=== PATIENT | female | born 1950 | race Caucasian/White ===

== ENCOUNTER 2017-04-30 09:32 | Emergency (ER) | payer MEDICARE ==
[~2017-04-30] VITALS: Ht 167.6 cm; Wt 76.0 kg
[2017-04-30] MEDS ORDERED: NEUPRO1 MG/24 HR (09:39)
[2017-04-30] MEDS ORDERED: CYMBALTA60 MG PO (09:55)
[2017-04-30] MEDS ORDERED: ZETIA10 MG PO (09:55)
[2017-04-30] MEDS ORDERED: BACLOFEN10 MG PO (09:56)
[2017-04-30] MEDS ORDERED: TOPAMAX25 MG PO (09:56)
[2017-04-30] MEDS ORDERED: TYSABRI (10:04)
[2017-04-30] MEDS ORDERED: ULTRAM50 M1 PO (10:06)
[2017-04-30] MEDS ORDERED: LIPOFEN150 MG PO (10:07)
[2017-04-30] MEDS ORDERED: LOSARTAN POT50 MG PO (10:07)
[2017-04-30] MEDS ORDERED: HUMULIN 70/30 SC (10:08)
[2017-04-30] MEDS ORDERED: NEUPRO4 MG/24 HR TD (10:09)
[2017-04-30 10:25] LABS: HEMATOCRIT 35.9 % (37.0-47.0); HEMOGLOBIN 12.1 g/dl (12.0-16.0); IMMATURE GRANULOCYTES 0.5 % (0.0-1.0); MEAN CELL VOLUME 86.3 fL CALC (80.0-100.0); MEAN CORPUSCULAR HGB 29.1 pG CALC (26.0-32.0); MEAN CORPUSCULAR HGB CONC 33.7 g/L CALC (32.0-36.0); NEUT# 4.21 thou/uL (2.00-7.15); RED BLOOD COUNT 4.16 mill/uL (4.20-5.60); RED CELL DISTRI WIDTH 14.6 % (11.5-15.5)
[2017-04-30 10:31] LABS: ALBUMIN 4.6 g/dL (3.2-5.0); ALKALINE PHOSPHATASE 67 u/l (38-126); ANION GAP 15 (6-22 (CALC)); BILIRUBIN, TOTAL 0.5 mg/dL (0.0-1.4); BUN 20 mg/dL (8-23); BUN/CREATININE RATIO 21 (12-20 (CALC)); CALCIUM 9.2 mg/dL (8.4-10.2); CARBON DIOXIDE 25 mmol/l (22-30); CHLORIDE 110 mmol/l (95-108); ETHYL ALCOHOL 0 mg/dl (0-30); GFR 55 ML/MIN (>=60 (CALC)); GFR FOR AFR.AMER. > 60 ML/MIN (>=60 (CALC)); GLUCOSE 112 mg/dL (82-115); POTASSIUM 4.3 mmol/l (3.5-5.1); SGOT/AST 34 u/l (9-36); SGPT/ALT 44 u/l (11-66); SODIUM 146 mmol/l (137-146); TOTAL PROTEIN 7.3 g/dL (6.3-8.2)
[2017-04-30 10:39] LABS: MYOGLOBIN 280 ng/mL (0 - 62)
[2017-04-30 12:32] LABS: BARBITURATES NEGATIVE (NEGATIVE); COCAINE NEGATIVE (NEGATIVE); METHADONE NEGATIVE (NEGATIVE); OXCYCODONE NEGATIVE (NEGATIVE); TETRAHYDROCANNABIONOL POSITIVE (NEGATIVE); TRICYLIC ANTIDEPRESSANTS NEGATIVE (NEGATIVE); URINE BILIRUBIN - DIPSTICK NEGATIVE (NEGATIVE); URINE BLOOD DIPSTICK NEGATIVE (NEGATIVE); URINE CLARITY CLEAR; URINE COLOR YELLOW; URINE GLUCOSE - DIPSTICK NEGATIVE (NEGATIVE); URINE KETONE NEGATIVE (NEGATIVE); URINE LEUK ESTERASE NEGATIVE (NEGATIVE); URINE NITRITE - DIPSTICK NEGATIVE (Negative); URINE PROTEIN - DIPSTICK NEGATIVE (NEG-TRACE); URINE SPECIFIC GRAVITY <=1.005; URINE UROBILINOGEN - DIPSTICK 0.2 E.U./dL (0.2)
[2017-04-30 13:16] VITALS: BP 154/73
[2017-05-01] MEDS ORDERED: TOPAMAX25 MG PO (13:56)
[2017-05-01] MEDS ORDERED: NEURONTIN300 MG PO (13:57)
[2017-05-01] MEDS ORDERED: NOVOLIN 70/30 SC ×2 (13:58)
[2017-05-01] MEDS ORDERED: LOSARTAN POT100 MG PO (13:59)
[2017-05-01] MEDS ORDERED: ZOFRAN ODT4 MG PO (14:04)
[2017-05-01] MEDS ORDERED: ANTIVERT PO (14:04)
[2017-05-01] MEDS ORDERED: [UNRECOGNIZED DRUG - OTHER] (14:06)
== END 2017-04-30 13:41 | disposition home or self-care (01) ==
LOC: ED 09:32
PROVIDERS: Emergency Medicine
DX: R42 Dizziness and giddiness (principal); I10 Essential (primary) hypertension; E11.9 Type 2 diabetes mellitus without complications; G25.81 Restless legs syndrome; G35 Multiple sclerosis; Z86.73 Personal history of transient ischemic attack (TIA), and cerebral infarction without residual deficits; Z79.4 Long term (current) use of insulin

== ENCOUNTER 2017-05-01 13:35 | Emergency (ER) | payer MEDICARE ==
[~2017-05-01] VITALS: Ht 167.6 cm; Wt 75.0 kg
[~2017-05-01 13:35] MED LIST: BACLOFEN10 MG PO; CYMBALTA60 MG PO; HUMULIN 70/30 SC; LIPOFEN150 MG PO; LOSARTAN POT50 MG PO; NEUPRO1 MG/24 HR; NEUPRO4 MG/24 HR TD; TOPAMAX25 MG PO; TYSABRI; ULTRAM50 M1 PO; ZETIA10 MG PO
[2017-05-01] MEDS ORDERED: TOPAMAX25 MG PO (13:56)
[2017-05-01] MEDS ORDERED: NEURONTIN300 MG PO (13:57)
[2017-05-01] MEDS ORDERED: NOVOLIN 70/30 SC ×2 (13:58)
[2017-05-01] MEDS ORDERED: LOSARTAN POT100 MG PO (13:59)
[2017-05-01] MEDS ORDERED: ZOFRAN ODT4 MG PO (14:04)
[2017-05-01] MEDS ORDERED: ANTIVERT PO (14:04)
[2017-05-01] MEDS ORDERED: [UNRECOGNIZED DRUG - OTHER] (14:06)
[2017-05-01 14:19] VITALS: BP 141/68
== END 2017-05-01 14:19 | disposition home or self-care (01) ==
LOC: ED 13:35
DX: H81.10 Benign paroxysmal vertigo, unspecified ear (principal); R11.2 Nausea with vomiting, unspecified

== ENCOUNTER 2017-09-04 09:01 | Emergency (ER) | payer MEDICARE ==
[~2017-09-04] VITALS: Ht 167.6 cm; Wt 80.0 kg
[~2017-09-04 09:01] MED LIST changes: +ANTIVERT PO; +LOSARTAN POT100 MG PO; +NEURONTIN300 MG PO; +NOVOLIN 70/30 SC; +ZOFRAN ODT4 MG PO; +[UNRECOGNIZED DRUG - OTHER]
[2017-09-04 09:25] LABS: HEMATOCRIT 37.8 % (37.0-47.0); HEMOGLOBIN 12.6 g/dl (12.0-16.0); IMMATURE GRANULOCYTES 0.5 % (0.0-1.0); MEAN CELL VOLUME 87.3 fL CALC (80.0-100.0); MEAN CORPUSCULAR HGB 29.1 pG CALC (26.0-32.0); MEAN CORPUSCULAR HGB CONC 33.3 g/L CALC (32.0-36.0); NEUT# 5.07 thou/uL (2.00-7.15); RED BLOOD COUNT 4.33 mill/uL (4.20-5.60); RED CELL DISTRI WIDTH 14.9 % (11.5-15.5)
[2017-09-04 09:42] LABS: ALBUMIN 4.6 g/dL (3.2-5.0); ALKALINE PHOSPHATASE 55 u/l (38-126); ANION GAP 18 (6-22 (CALC)); BILIRUBIN, TOTAL 0.6 mg/dL (0.0-1.4); BUN 30 mg/dL (8-23); BUN/CREATININE RATIO 28 (12-20 (CALC)); CALCIUM 9.8 mg/dL (8.4-10.2); CARBON DIOXIDE 18 mmol/l (22-30); CHLORIDE 110 mmol/l (95-108); CREATININE 1.1 mg/dL (0.5-1.0); GFR 50 ML/MIN (>=60 (CALC)); GFR FOR AFR.AMER. 60 ML/MIN (>=60 (CALC)); GLUCOSE 191 mg/dL (82-115); MAGNESIUM 1.8 mg/dL (1.6-2.3); POTASSIUM 3.5 mmol/l (3.5-5.1); SGOT/AST 29 u/l (9-36); SGPT/ALT 34 u/l (11-66); SODIUM 142 mmol/l (137-146); TOTAL PROTEIN 7.2 g/dL (6.3-8.2)
[2017-09-04 09:54] LABS: MYOGLOBIN 298 ng/mL (0 - 62)
[2017-09-04] MEDS ORDERED: IMODIUM2 MG PO (12:24)
[2017-09-04] MEDS ORDERED: ZOFRAN ODT4 MG PO (12:24)
[2017-09-04] MEDS ORDERED: CIPROFLOXACN500 MG PO (12:24)
[2017-09-04 12:40] VITALS: BP 122/75
== END 2017-09-04 12:52 | disposition home or self-care (01) ==
LOC: ED 09:01
PROVIDERS: Emergency Medicine
DX: E86.0 Dehydration (principal); K52.9 Noninfective gastroenteritis and colitis, unspecified; R11.2 Nausea with vomiting, unspecified; R53.1 Weakness; I10 Essential (primary) hypertension; R94.31 Abnormal electrocardiogram [ECG] [EKG]

== ENCOUNTER 2018-04-01 00:30 | Inpatient (IN) | payer MEDICARE ==
[~2018-04-01] VITALS: Ht 167.6 cm; Wt 84.4 kg
[~2018-04-01 00:30] MED LIST changes: +CIPROFLOXACN500 MG PO; +IMODIUM2 MG PO
[2018-04-01 01:15] LABS: URINE BILIRUBIN - DIPSTICK NEGATIVE (NEGATIVE); URINE BLOOD DIPSTICK MODERATE (NEGATIVE); URINE COLOR YELLOW; URINE GLUCOSE - DIPSTICK 100 mg/dL (NEGATIVE); URINE KETONE NEGATIVE (NEGATIVE); URINE NITRITE - DIPSTICK NEGATIVE (Negative); URINE PROTEIN - DIPSTICK TRACE mg/dL (NEG-TRACE); URINE UROBILINOGEN - DIPSTICK 0.2 E.U./dL (0.2)
[2018-04-01 01:15] LABS: HEMATOCRIT 38.1 % (37.0-47.0); HEMOGLOBIN 13.2 g/dl (12.0-16.0); MEAN CORPUSCULAR HGB 28.9 pG CALC (26.0-32.0); MEAN CORPUSCULAR HGB CONC 34.6 g/L CALC (32.0-36.0); NEUT# 12.98 thou/uL (2.00-7.15); RED BLOOD COUNT 4.57 mill/uL (4.20-5.60); RED CELL DISTRI WIDTH 13.9 % (11.5-15.5)
[2018-04-01 01:16] LABS: URINE CLARITY SL CLOUDY; URINE LEUK ESTERASE SMALL (NEGATIVE)
[2018-04-01 01:16] LABS: MEAN CELL VOLUME 83.4 fL CALC (80.0-100.0)
[2018-04-01 01:21] LABS: URINE BACTERIA FEW hpf; URINE MUCUS FEW hpf (NONE-FEW); URINE SQUAMOUS EPITHELIAL CELL FEW EPI/hpf (0-FEW); URINE WBC 20-50 WBC/hpf (0-5)
[2018-04-01 01:21] LABS: ALBUMIN 4.2 g/dL (3.2-5.0); ALKALINE PHOSPHATASE 83 u/l (38-126); BILIRUBIN, TOTAL 0.9 mg/dL (0.0-1.4); BUN 18 mg/dL (8-23); BUN/CREATININE RATIO 23 (12-20 (CALC)); CARBON DIOXIDE 23 mmol/l (22-30); CHLORIDE 104 mmol/l (95-108); CREATININE 0.8 mg/dL (0.5-1.0); GFR > 60 ML/MIN (>=60 (CALC)); GFR FOR AFR.AMER. > 60 ML/MIN (>=60 (CALC)); SGOT/AST 18 u/l (9-36); SGPT/ALT 30 u/l (11-66); TOTAL PROTEIN 7.2 g/dL (6.3-8.2)
[2018-04-01 01:22] LABS: ANION GAP 14 (6-22 (CALC)); POTASSIUM 3.2 mmol/l (3.5-5.1); SODIUM 138 mmol/l (137-146)
[2018-04-01 01:33] LABS: MYOGLOBIN 98 ng/mL (0 - 62)
[2018-04-01] MEDS ORDERED: METRONIDAZOL500 MG PO (02:29)
[2018-04-01] MEDS ORDERED: [UNRECOGNIZED DRUG - OTHER] SC (02:36)
[2018-04-01 03:53] VITALS: BP 141/78
[2018-04-01 07:48] VITALS: BP 152/77
[2018-04-01 11:35] VITALS: BP 141/74
[2018-04-01 14:34] LABS: BARBITURATES NEGATIVE (NEGATIVE); COCAINE NEGATIVE (NEGATIVE); METHADONE NEGATIVE (NEGATIVE); OXCYCODONE NEGATIVE (NEGATIVE); TETRAHYDROCANNABIONOL NEGATIVE (NEGATIVE); TRICYLIC ANTIDEPRESSANTS NEGATIVE (NEGATIVE)
[2018-04-01 18:09] LABS: CHOLESTEROL HDL RATIO 4.8 (<4.4 (CALC)); MAGNESIUM 1.6 mg/dL (1.6-2.3)
[2018-04-01 19:14] VITALS: BP 143/83
[2018-04-01 21:28] VITALS: BP 160/72
[2018-04-02 00:15] VITALS: BP 116/62
[2018-04-02 04:27] VITALS: BP 126/76
[2018-04-02 05:19] LABS: HEMATOCRIT 35.1 % (37.0-47.0); HEMOGLOBIN 11.4 g/dl (12.0-16.0); MEAN CELL VOLUME 88.2 fL CALC (80.0-100.0); MEAN CORPUSCULAR HGB 28.6 pG CALC (26.0-32.0); MEAN CORPUSCULAR HGB CONC 32.5 g/L CALC (32.0-36.0); NEUT# 5.83 thou/uL (2.00-7.15); RED BLOOD COUNT 3.98 mill/uL (4.20-5.60); RED CELL DISTRI WIDTH 14.5 % (11.5-15.5)
[2018-04-02 05:36] LABS: ANION GAP 12 (6-22 (CALC)); BUN 12 mg/dL (8-23); BUN/CREATININE RATIO 14 (12-20 (CALC)); CARBON DIOXIDE 23 mmol/l (22-30); CHLORIDE 109 mmol/l (95-108); CREATININE 0.9 mg/dL (0.5-1.0); GFR > 60 ML/MIN (>=60 (CALC)); GFR FOR AFR.AMER. > 60 ML/MIN (>=60 (CALC)); SODIUM 140 mmol/l (137-146)
[2018-04-02 05:41] LABS: POTASSIUM 3.9 mmol/l (3.5-5.1)
[2018-04-02 08:16] VITALS: BP 130/57
[2018-04-02 12:12] VITALS: BP 113/65
[2018-04-02 16:11] VITALS: BP 111/56
[2018-04-02 19:00] VITALS: BP 114/71
[2018-04-03 00:04] VITALS: BP 125/61
[2018-04-03 04:00] VITALS: BP 118/68
[2018-04-03 05:17] LABS: HEMATOCRIT 32.9 % (37.0-47.0); HEMOGLOBIN 10.9 g/dl (12.0-16.0); MEAN CELL VOLUME 85.9 fL CALC (80.0-100.0); MEAN CORPUSCULAR HGB 28.5 pG CALC (26.0-32.0); MEAN CORPUSCULAR HGB CONC 33.1 g/L CALC (32.0-36.0); RED BLOOD COUNT 3.83 mill/uL (4.20-5.60); RED CELL DISTRI WIDTH 14.5 % (11.5-15.5)
[2018-04-03 05:32] LABS: ANION GAP 11 (6-22 (CALC)); BUN 10 mg/dL (8-23); BUN/CREATININE RATIO 13 (12-20 (CALC)); CARBON DIOXIDE 22 mmol/l (22-30); CHLORIDE 112 mmol/l (95-108); CREATININE 0.7 mg/dL (0.5-1.0); GFR > 60 ML/MIN (>=60 (CALC)); GFR FOR AFR.AMER. > 60 ML/MIN (>=60 (CALC)); POTASSIUM 3.7 mmol/l (3.5-5.1); SODIUM 141 mmol/l (137-146)
[2018-04-03 08:09] VITALS: BP 126/62
[2018-04-03] MEDS ORDERED: FLORASTOR250 M1 PO (11:05)
[2018-04-03] MEDS ORDERED: LEVAQUIN750 MG PO (11:05)
[2018-04-03 11:11] VITALS: BP 118/67
== END 2018-04-03 12:57 | DRG 871 ==
LOC: ED 00:30 → ED-I 02:33 → ED 02:53 → MS2 02:54
PROVIDERS: Emergency Medicine; Nurse Practitioner Family; ADMIT Internal Medicine; ATTEND Internal Medicine
DX: A41.59 Other Gram-negative sepsis (principal); G93.41 Metabolic encephalopathy; N39.0 Urinary tract infection, site not specified; R65.20 Severe sepsis without septic shock; E11.9 Type 2 diabetes mellitus without complications; I10 Essential (primary) hypertension; G35 Multiple sclerosis; G25.81 Restless legs syndrome; E87.6 Hypokalemia; Z86.73 Personal history of transient ischemic attack (TIA), and cerebral infarction without residual deficits; Z87.891 Personal history of nicotine dependence; Z79.4 Long term (current) use of insulin
CPT/HCPCS: J1650

== ENCOUNTER 2018-06-26 11:01 | Inpatient (IN) | payer MEDICARE ==
[~2018-06-26] VITALS: Ht 167.6 cm; Wt 92.0 kg
[~2018-06-26 11:01] MED LIST changes: +FLORASTOR250 M1 PO; +LEVAQUIN750 MG PO; +METRONIDAZOL500 MG PO; +[UNRECOGNIZED DRUG - OTHER] SC
[2018-06-26] MEDS ORDERED: MICROZIDE12.5 MG PO (12:23)
[2018-06-26] MEDS ORDERED: TOUJEO SOL300 UNIT/M SC (12:25)
[2018-06-30] VITALS (8 sets, daily range): BP systolic 114–150; BP diastolic 62–84
[2018-07-01] VITALS: BP 119/66
[2018-07-01 04:00] VITALS: BP 140/75
[2018-07-01 05:22] LABS: IMMATURE GRANULOCYTES 0.6 % (0.0-5.0); MEAN CELL VOLUME 89.2 fL CALC (80.0-100.0); MEAN CORPUSCULAR HGB 29.4 pG CALC (26.0-32.0); NEUT# 4.14 thou/uL (2.00-7.15); RED BLOOD COUNT 3.6 mill/uL (4.20-5.60); RED CELL DISTRI WIDTH 15.6 % (11.5-15.5)
[2018-07-01 05:26] LABS: HEMATOCRIT 32.1 % (37.0-47.0); HEMOGLOBIN 10.6 g/dl (12.0-16.0)
[2018-07-01 05:39] LABS: ALKALINE PHOSPHATASE 38 u/l (38-126); ANION GAP 11 (6-22 (CALC)); BILIRUBIN, TOTAL 0.4 mg/dL (0.0-1.4); BUN 13 mg/dL (8-23); BUN/CREATININE RATIO 19 (12-20 (CALC)); CARBON DIOXIDE 24 mmol/l (22-30); CHLORIDE 110 mmol/l (95-108); CREATININE 0.7 mg/dL (0.5-1.0); GFR > 60 ML/MIN (>=60 (CALC)); GFR FOR AFR.AMER. > 60 ML/MIN (>=60 (CALC)); MAGNESIUM 1.8 mg/dL (1.6-2.3); POTASSIUM 3.9 mmol/l (3.5-5.1); SGOT/AST 23 u/l (9-36); SODIUM 141 mmol/l (137-146)
[2018-07-01 05:54] LABS: ALBUMIN 3.3 g/dL (3.2-5.0); TOTAL PROTEIN 5.6 g/dL (6.3-8.2)
[2018-07-01 07:46] VITALS: BP 124/53
[2018-07-01 11:42] VITALS: BP 132/67
[2018-07-01 15:45] VITALS: BP 112/63
[2018-07-01 19:27] VITALS: BP 148/74
[2018-07-02 00:37] VITALS: BP 136/67
[2018-07-02 04:16] VITALS: BP 147/66
[2018-07-02 04:57] LABS: HEMATOCRIT 30.2 % (37.0-47.0); HEMOGLOBIN 10.1 g/dl (12.0-16.0)
[2018-07-02 08:00] VITALS: BP 101/59
[2018-07-02 11:50] VITALS: BP 107/57
[2018-07-02] MEDS ORDERED: TRAMADOL HCL50 MG PO (12:58)
== END 2018-07-02 13:30 | disposition home health service (06) | DRG 470 ==
LOC: MS2 06-30 08:00
PROVIDERS: Internal Medicine Nephrology; ADMIT Orthopaedic Surgery; ATTEND Orthopaedic Surgery
PROC: 0SRC0J9 Replacement of Right Knee Joint with Synthetic Substitute, Cemented, Open Approach (ICD-10-PCS; principal; 2018-06-30)
DX: M17.11 Unilateral primary osteoarthritis, right knee (principal); I10 Essential (primary) hypertension; E11.40 Type 2 diabetes mellitus with diabetic neuropathy, unspecified; G35 Multiple sclerosis; G25.81 Restless legs syndrome; K59.00 Constipation, unspecified; Z79.4 Long term (current) use of insulin; Z86.73 Personal history of transient ischemic attack (TIA), and cerebral infarction without residual deficits; Z87.891 Personal history of nicotine dependence
CPT/HCPCS: J2270

== ENCOUNTER 2018-09-03 10:10 | Emergency (ER) | payer MEDICARE ==
[~2018-09-03] VITALS: Ht 167.6 cm; Wt 90.0 kg
[~2018-09-03 10:10] MED LIST changes: +MICROZIDE12.5 MG PO; +TOUJEO SOL300 UNIT/M SC; +TRAMADOL HCL50 MG PO
[2018-09-03] MEDS ORDERED: NAPROSYN500 MG PO (11:45)
[2018-09-03 11:50] VITALS: BP 154/82
== END 2018-09-03 11:50 | disposition home or self-care (01) ==
LOC: ED 10:10
DX: S80.01XA Contusion of right knee, initial encounter (principal); M25.531 Pain in right wrist; M19.90 Unspecified osteoarthritis, unspecified site; E11.9 Type 2 diabetes mellitus without complications; I10 Essential (primary) hypertension; G35 Multiple sclerosis; W18.30XA Fall on same level, unspecified, initial encounter; Y92.009 Unspecified place in unspecified non-institutional (private) residence as the place of occurrence of the external cause; Z96.651 Presence of right artificial knee joint; Z86.73 Personal history of transient ischemic attack (TIA), and cerebral infarction without residual deficits

== ENCOUNTER 2018-10-08 20:03 | Emergency (ER) | payer MEDICARE ==
[~2018-10-08] VITALS: Ht 167.6 cm; Wt 79.0 kg
[~2018-10-08 20:03] MED LIST changes: +NAPROSYN500 MG PO
[2018-10-08] MEDS ORDERED: TRAMADOL HCL50 MG PO (20:34)
[2018-10-08 21:05] VITALS: BP 168/80
== END 2018-10-08 21:05 | disposition home or self-care (01) ==
LOC: ED 20:03
DX: M25.561 Pain in right knee (principal); W18.30XA Fall on same level, unspecified, initial encounter; Y92.009 Unspecified place in unspecified non-institutional (private) residence as the place of occurrence of the external cause

== ENCOUNTER 2019-01-17 08:08 | Emergency (ER) | payer MEDICARE ==
[~2019-01-17] VITALS: Ht 167.6 cm; Wt 81.8 kg
[2019-01-17 08:46] LABS: HEMATOCRIT 39.8 % (37.0-47.0); HEMOGLOBIN 13.1 g/dl (12.0-16.0); IMMATURE GRANULOCYTES 0.4 % (0.0-5.0); MEAN CELL VOLUME 85.4 fL CALC (80.0-100.0); MEAN CORPUSCULAR HGB 28.1 pG CALC (26.0-32.0); MEAN CORPUSCULAR HGB CONC 32.9 g/L CALC (32.0-36.0); NEUT# 4.18 thou/uL (2.00-7.15); RED BLOOD COUNT 4.66 mill/uL (4.20-5.60); RED CELL DISTRI WIDTH 15.1 % (11.5-15.5)
[2019-01-17 09:02] LABS: ANION GAP 11 (6-22 (CALC)); BUN 15 mg/dL (8-23); BUN/CREATININE RATIO 24 (12-20 (CALC)); CARBON DIOXIDE 26 mmol/l (22-30); CHLORIDE 106 mmol/l (95-108); CREATININE 0.6 mg/dL (0.5-1.0); GFR > 60 ML/MIN (>=60 (CALC)); GFR FOR AFR.AMER. > 60 ML/MIN (>=60 (CALC)); POTASSIUM 3.3 mmol/l (3.5-5.1); SODIUM 141 mmol/l (137-146)
[2019-01-17] MEDS ORDERED: K-TAB20 MEQ PO (09:04)
[2019-01-17] MEDS ORDERED: TOPIRAMATE25 MG PO (09:21)
[2019-01-17] MEDS ORDERED: GABAPENTIN100 MG PO (09:26)
[2019-01-17] MEDS ORDERED: VOLTAREN1%GEL TOP (09:40)
[2019-01-17 09:54] VITALS: BP 183/79
== END 2019-01-17 10:11 | disposition home or self-care (01) ==
LOC: ED 08:08
PROVIDERS: Family Medicine
DX: R55 Syncope and collapse (principal); S86.911A Strain of unspecified muscle(s) and tendon(s) at lower leg level, right leg, initial encounter; E11.9 Type 2 diabetes mellitus without complications; I10 Essential (primary) hypertension; G35 Multiple sclerosis; W18.30XA Fall on same level, unspecified, initial encounter; Y92.003 Bedroom of unspecified non-institutional (private) residence as the place of occurrence of the external cause; Z86.73 Personal history of transient ischemic attack (TIA), and cerebral infarction without residual deficits; Z96.651 Presence of right artificial knee joint

== ENCOUNTER 2019-09-22 | Emergency (ER) | payer MEDICARE ==
[~2019-09-22] MED LIST changes: +GABAPENTIN100 MG PO; +K-TAB20 MEQ PO; +TOPIRAMATE25 MG PO; +VOLTAREN1%GEL TOP
[2019-09-22 16:04] LABS: HEMOGLOBIN 14.7 g/dl (12.0-16.0); IMMATURE GRANULOCYTES 0.7 % (0.0-5.0); MEAN CELL VOLUME 85.9 fL CALC (80.0-100.0); MEAN CORPUSCULAR HGB 28.7 pG CALC (26.0-32.0); MEAN CORPUSCULAR HGB CONC 33.4 g/L CALC (32.0-36.0); NEUT# 3.84 thou/uL (2.00-7.15); RED BLOOD COUNT 5.12 mill/uL (4.20-5.60); RED CELL DISTRI WIDTH 12.9 % (11.5-15.5)
[2019-09-22 16:11] LABS: GFR > 60 ML/MIN (>=60 (CALC)); GFR FOR AFR.AMER. > 60 ML/MIN (>=60 (CALC))
[2019-09-22 16:17] LABS: ALBUMIN 4.4 g/dL (3.2-5.0); ANION GAP 15 (6-22 (CALC)); BILIRUBIN, TOTAL 0.5 mg/dL (0.0-1.4); BUN 13 mg/dL (8-23); BUN/CREATININE RATIO 23 (12-20 (CALC)); CARBON DIOXIDE 23 mmol/l (22-30); CHLORIDE 100 mmol/l (95-108); CREATININE 0.6 mg/dL (0.5-1.0); GFR > 60 ML/MIN (>=60 (CALC)); GFR FOR AFR.AMER. > 60 ML/MIN (>=60 (CALC)); LIPASE 122 u/l (23-300); POTASSIUM 3.8 mmol/l (3.5-5.1); SGOT/AST 37 u/l (9-36); SODIUM 134 mmol/l (137-146); TOTAL PROTEIN 7.4 g/dL (6.3-8.2)
[2019-09-22 16:19] LABS: ALKALINE PHOSPHATASE 133 u/l (38-126)
[2019-09-22 16:25] LABS: INTERNATIONAL NORMALIZED RATIO 0.9 RATIO (0.7-1.3); PROTHROMBIN TIME 9.5 SECONDS (9.0-12.5)
== END 2019-09-22 16:55 | disposition short-term general hospital (02) ==
PROVIDERS: Family Medicine
DX: I63.9 Cerebral infarction, unspecified (principal); R29.704 NIHSS score 4; I10 Essential (primary) hypertension; E11.9 Type 2 diabetes mellitus without complications; G35 Multiple sclerosis; Z86.73 Personal history of transient ischemic attack (TIA), and cerebral infarction without residual deficits; Z79.4 Long term (current) use of insulin
CPT/HCPCS: J2997; Q9967